=== PATIENT | female | born 1970 | race Two or more races ===

== ENCOUNTER 2017-03-08 09:18 | Emergency (ER) | payer MEDICAID ==
[~2017-03-08] VITALS: Ht 154.9 cm; Wt 69.1 kg
[2017-03-08 09:45] VITALS: BP 147/90
== END 2017-03-08 10:18 | disposition home or self-care (01) ==
LOC: ER 09:18
DX: L25.9 Unspecified contact dermatitis, unspecified cause (principal); H66.93 Otitis media, unspecified, bilateral

== ENCOUNTER 2017-08-19 07:58 | Emergency (ER) | payer MEDICAID, OTHER ==
[~2017-08-19] VITALS: Ht 154.9 cm; Wt 68.0 kg
[2017-08-19 08:39] VITALS: BP 164/83
== END 2017-08-19 09:05 | disposition home or self-care (01) ==
LOC: ER 07:58
DX: H66.3X2 Other chronic suppurative otitis media, left ear (principal); J02.9 Acute pharyngitis, unspecified; Z88.1 Allergy status to other antibiotic agents

== ENCOUNTER 2017-09-26 08:26 | Emergency (ER) | payer MEDICAID, OTHER ==
[~2017-09-26] VITALS: Ht 154.9 cm; Wt 72.1 kg
[2017-09-26 08:43] VITALS: BP 115/71
[2017-09-26] MEDS ORDERED: cefTRIAXone SOD 1,000 MG VL IM ONE (09:00)
== END 2017-09-26 09:33 | disposition home or self-care (01) ==
LOC: ER 08:26
DX: H66.93 Otitis media, unspecified, bilateral (principal); H60.93 Unspecified otitis externa, bilateral; Z88.8 Allergy status to other drugs, medicaments and biological substances
CPT/HCPCS: 96372; 99283; J0696

== ENCOUNTER 2018-01-17 08:20 | Emergency (ER) | payer MEDICAID, OTHER ==
[~2018-01-17] VITALS: Ht 154.9 cm; Wt 69.9 kg
[2018-01-17 08:50] VITALS: BP 139/91
== END 2018-01-17 09:20 | disposition home or self-care (01) ==
LOC: ER 08:20
DX: H66.91 Otitis media, unspecified, right ear (principal); M65.841 Other synovitis and tenosynovitis, right hand; Z88.1 Allergy status to other antibiotic agents